=== PATIENT | female | born 1935 | race Caucasian/White ===

== ENCOUNTER 2022-04-09 13:54 | Emergency (ER) | payer MEDICARE, SELFPAY ==
[2022-04-09 14:06] VITALS: BP 146/90; PULSE 87; RESP 16; TEMP 37.1; O2SAT 98
--- NOTE | 2022-04-09 14:59 | ED.URI ---
HPI - URI/Sore Throat General Chief Complaint: Upper Respiratory Infection Stated Complaint: Ears Irritation, Sinus Time Seen by Provider: 04/09/22 15:00 Source: patient and RN notes reviewed Mode of arrival: ambulatory Limitations: no limitations History of Present Illness HPI Narrative: 86 y/o female presented for c/o right ear fullness, sinus congestion, mild cough for 5 days. States she stayed in bed most of the first day of symptoms. Denies pain, sob, wheezing, fever or chills. Taking Tussin for symptoms. Denies sick contacts. MD elicited complaint: cough Related Data Allergies Allergy/AdvReac Type Severity Reaction Status Date / Time escitalopram AdvReac Mild GI issues Verified 04/09/22 14:26 Review of Systems Review of Systems: CONSTITUTIONAL: Denies malaise, chills, sweats, fever EYES: Denies visual changes, redness, or discharge ENT: Reports rhinorrhea, congestion, denies sinus pain, otalgia, sore throat CARDIOVASCULAR: Denies chest pain, palpitations, edema RESPIRATORY: Reports post nasal drainage. Denies dyspnea GASTROINTESTINAL: Denies abdominal pain, nausea, vomiting, diarrhea SKIN: Denies rash or itching MUSCULOSKELETAL: denies myalgia PMFSH Past Medical History Medical History Anxiety disorder, unspecified BMI 21.0-21.9, adult BMI 23.0-23.9, adult Dietary counseling and surveillance (02/05/16) Encounter for screening for lipoid disorders Essential (primary) hypertension History of tinnitus Other symptoms and signs involving emotional state Pneumonia due to COVID-19 virus Postmenopausal Routine medical exam Varicose veins of both lower extremities Family History Family History Mother Hypertension Amputation leg, bilat Sibling Family history of coronary artery disease Father No problems noted. 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 TMs pearly lee with light reflex bilaterally, mild fluid to Right TM; no tragal tenderness. Oropharynx erythematous without lesions or exudate, no drooling, no hoarseness, no trismus, uvula midline. CHEST: Clear to auscultation, breath sounds equal. No wheezing, rhonchi, rales, or stridor. No respiratory distress, speaks in full sentences. HEART: Regular rate and rhythm. SKIN: Warm, dry, no rash. NEURO: Alert and oriented x3. Course Course Emergency Course: Patient is aware of diagnosis, understands and agrees to treatment plan. Anticipatory guidance given. Patient agrees to follow-up as directed and is aware of reasons to seek care at the emergency department. Portions of this record may have been created with voice recognition software Level of Care: Express Care Visit Vital Signs Vital signs: Vital Signs Temperature 98.7 F 04/09/22 14:06 Pulse Rate 87 04/09/22 14:06 Respiratory Rate 16 04/09/22 14:06 Blood Pressure 146/90 H 04/09/22 14:06 Pulse Oximetry 98 04/09/22 14:06 Oxygen Delivery Room Air 04/09/22 14:06 Temperature 98.7 F 04/09/22 14:06 Pulse Rate 87 04/09/22 14:06 Respiratory Rate 16 04/09/22 14:06 Blood Pressure 146/90 H 04/09/22 14:06 Pulse Oximetry 98 04/09/22 14:06 Oxygen Delivery Room Air 04/09/22 14:06 reviewed MDM - URI/Sore Throat MDM Narrative Medical decision making narrative: Advised supportive measures and signs/symptoms to go to the ER. Pt is appropriate for outpt treatment and f/u. Differential Diagnosis Differ
== END 2022-04-09 15:14 | disposition home or self-care (01) ==
PROVIDERS: Emergency Provider Nurse Practitioner Family; PCP Family Medicine
DX: J06.9 Acute upper respiratory infection, unspecified (principal); I10 Essential (primary) hypertension; Z86.16 Personal history of COVID-19; F41.9 Anxiety disorder, unspecified
CPT/HCPCS: 99213; G0463